=== PATIENT | female | born 1990 | race American Indian/Alaskan Native ===

== ENCOUNTER 2019-02-11 23:39 | Emergency (ER) | payer MEDICAID, OTHER ==
[2019-02-11] MEDS ORDERED: Acetaminophen/HYDROcodone 325-10 MG Tab PO ONE (23:50)
--- NOTE | 2019-02-11 23:51 | EDM.PDOC ---
ED HPI GENERAL MEDICAL PROBLEM - General Chief Complaint: Lower Extremity Injury/Pain Stated Complaint: SLIPPED AND FELL,HURT LEFT KNEE Time Seen by Provider: 02/11/19 23:50 Source of Information: Reports: Patient History Limitations: Reports: No Limitations - History of Present Illness INITIAL COMMENTS - FREE TEXT/NARRATIVE: fell onto left knee [employer] Left Knee Pain Score (Numeric/FACES): 2 - Related Data Allergies Allergy/AdvReac Type Severity Reaction Status Date / Time cephalexin monohydrate Allergy Unknown Rash Verified 02/11/19 23:53 [From Keflex] Penicillins Allergy Unknown unknown Verified 02/11/19 23:53 Home Meds: Home Meds . 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 ED EXAM, GENERAL - Physical Exam Exam: See Below Exam Limited By: No Limitations General Appearance: Alert, WD/WN, Mild Distress, Other (pain) Ears: Hearing Grossly Normal Throat/Mouth: Normal Voice, No Airway Compromise Head: Atraumatic Neck: Non-Tender, Full Range of Motion Respiratory/Chest: No Respiratory Distress Cardiovascular: Regular Rate, Rhythm GI/Abdominal: Soft, Non-Tender Extremities: Other (left knee mild swelling, no gross D/D, NV wnl, gait limited to pain) Neurological: Alert, Oriented, Normal Cognition, No Motor/Sensory Deficits Psychiatric: Tearful Skin Exam: Warm, Dry, Normal Color Lymphatic: No Adenopathy Course - Vital Signs Last Recorded V/S: Last Vital Signs Temp 35.5 C 02/11/19 23:44 Pulse 83 02/11/19 23:44 Resp 17 02/11/19 23:44 BP 144/74 H 02/11/19 23:44 Pulse Ox 98 02/11/19 23:44 - Orders/Labs/Meds Meds: Medications Discontinued Medications Generic Name Dose Route Start Last Admin Trade Name Freq PRN Reason Stop Dose Admin Hydrocodone Bitart/Acetaminophen 1 tab 02/11/19 23:50 02/11/19 23:54 Sheldon 325-10 Mg PO 02/11/19 23:51 1 tab ONETIME ONE Administration - Re-Assessments/Exams Free Text/Narrative Re-Assessment/Exam: 02/12/19 00:55 results discussed with pt Departure - Departure Time of Disposition: 00:56 Disposition: Home, Self-Care 01 Condition: Good Clinical Impression: Contusion of knee - Discharge Information Instructions: Contusion, [id number] Forms: ED Department Discharge Additional Instructions: 1) elevate knee as much as possible next 48 hours 2) ice for swelling 3) wear GIFTY for comfort 4) take tylenol or motrin for pain 5) see clinic for possible MRI SCAN if not totally better by Tuesday
[2019-02-12 01:09] VITALS: BP 123/86
== END 2019-02-12 01:01 | disposition home or self-care (01) ==
LOC: DL.ED 23:39
DX: S80.02XA Contusion of left knee, initial encounter (principal); W01.0XXA Fall on same level from slipping, tripping and stumbling without subsequent striking against object, initial encounter; Z88.1 Allergy status to other antibiotic agents
CPT/HCPCS: 73562; 99283; A9270